=== PATIENT | male | born 1965 | race Caucasian/White ===

== ENCOUNTER 2025-09-22 15:36 | Outpatient (CLI) | payer OTHER, SELFPAY ==
--- NOTE | 2025-09-22 16:00 | CRLHL7_ITS ---
For Patients: As a result of the Century Cures Act, medical imaging exams and procedure reports are released immediately into your electronic medical record. You may view this report before your referring provider. If you have questions, please contact your health care provider. Indication: ABD HERNIA W/O OBSTRUCTION Technique: Noncontrast CT abdomen and pelvis. Valsalva performed during the exam. Please note that all CT scans at this facility use dose modulation, iterative reconstruction, and/or weight-based dosing when appropriate to reduce radiation dose to as low as reasonably achievable. Comparison: None Findings: Lung bases are clear. Mild hepatic steatosis. No calcified gallstones. Normal spleen. Circumscribed low-density left adrenal nodule measures 2.5 cm. Normal right adrenal gland. Nonobstructing renal calculi measure up to 4.1 millimeters. Normal left kidney. The ureters are normal. Normal bladder. Prostate calcifications. 7.9 cm left inguinal hernia is present which contains loops of colon. No bowel obstruction or inflammatory change. No free fluid or abscess. No fracture. Ill-defined densities in the central mesenteric fat with numerous sub cm mesenteric lymph nodes. Impression: Left inguinal hernia contains noninflamed loops of distal left colon/proximal sigmoid colon. Nonobstructing right renal calculi. Please note that all CT scans at this facility use dose modulation, iterative reconstruction, and/or weight-based dosing when appropriate to reduce radiation dose to as low as reasonably achievable. Dictated by Boubacar Roy MD @ 09/23/2025 7:34:00 PM (Electronically Signed)
== END 2025-09-22 15:37 | disposition home or self-care (01) ==
LOC: CT 15:37
PROVIDERS: PCP Family Medicine; Visit Provider Family Medicine
DX: K46.9 Unspecified abdominal hernia without obstruction or gangrene (principal); K40.90 Unilateral inguinal hernia, without obstruction or gangrene, not specified as recurrent; N20.0 Calculus of kidney
CPT/HCPCS: 74176

== ENCOUNTER 2025-10-27 15:30 | Outpatient (CLI) | payer OTHER, SELFPAY | END 2025-10-27 15:31 | disposition home or self-care (01) | LOC: NFLDREF 11-02 15:32 | PROVIDERS: PCP Family Medicine; Referring Provider Family Medicine; Visit Provider Family Medicine | DX: Z00.00 Encounter for general adult medical examination without abnormal findings (principal) | CPT/HCPCS: 80053 ==

== ENCOUNTER 2025-11-20 08:01 | Day surgery (SDC) | payer OTHER, SELFPAY ==
[2025-11-20] VITALS (13 sets, daily range): BP systolic 114–130; BP diastolic 74–90; PULSE 62–85; RESP 12–18; TEMP 36.2–36.7; O2SAT 98–100; BMI 26.5
[2025-11-20] MEDS: LACTATED RINGERS 1000 ML 1,000 ML 100 ML IV (08:15)
[2025-11-20] MEDS: SODIUM CHLORIDE 0.9 % (FLUSH) 10 ML SYRINGE IVF (08:38)
--- NOTE | 2025-11-20 09:44 | PM.GSPRC ---
Operative Note Date of procedure: 11/20/25 Pre-op diagnosis: Left inguinal hernia Post-op diagnosis: Same Type of Procedure: Laparoscopic repair reducible left inguinal hernia with mesh Indications: The patient is a 60-year-old male who presented to clinic with a 1.5 year history of a left inguinal hernia. After recent respiratory illness in which she was coughing, his symptoms became much worse with more persistent pain. After discussion of options he elected to proceed with repair. Procedure Description: After discussing the risks and benefits of the procedure, the patient signed informed consent.? The operative site was marked and the patient was brought to the operating room and placed on the operating table in supine position.? Care was taken to pad the patient's pressure points.?? The patient was then intubated by anesthesia.?? The operative site was then prepped and draped in the usual sterile fashion.? A time-out was then performed. A curvilinear incision was made below the umbilicus. Dissection was carried down to subcutaneous tissue until the anterior rectus fascia was encountered. This was incised off the midline on the left. The rectus muscle fibers were then retracted exposing the posterior fascia. A port with a dissecting balloon was then introduced into the pre-preperitoneal space. This was inflated under direct vision. The balloon was deflated, removed, and a 10 mm working port was placed. The space was insufflated and a 10 mm 30-degree scope was then advanced into the space. Two 5 mm ports were placed in the midline under direct vision. Dissection began on the left side. Abel's ligament and the pubic bone were exposed medially. Following this, dissection was carried out laterally. An indirect hernia was noted. The sac was dissected free from the cord structures using a combination of sharp and blunt dissection. A moderate-sized cord lipoma was also encountered and reduced. Once the sac was completely reduced, a piece of Bard 3DMax mesh for the appropriate side was placed into the abdomen. This was positioned with the marker pointed medially. A Tacker was used to attach the mesh medially at Abel's ligament. Once this was completed the sac was placed on top of the mesh and the preperitoneal space desufflated under direct vision to ensure the mesh laid flat. 10 mL of 0.5% Marcaine were instilled into the preperitoneal space through a port. The ports were removed. The fascia from the infraumbilical port was closed with 0 Vicryl. The skin incisions were closed with absorbable subcuticular suture. Sterile dressings were then applied. The scrotum was examined to ensure that both testicles were down. Instrument sponge and needle counts were correct at the end of the case. ? The patient was then woken and transported to the recovery area in stable condition. ? The patient tolerated the procedure well. Findings: Left indirect inguinal hernia Anesthesia: GETA Surgeon: Celi Underwood MD Estimated blood loss (mL): 5 Condition: stable Disposition: PACU
[2025-11-20] MEDS: CLINDAMYCIN 900 MG/50 ML-D5W IVPB (10:12)
[2025-11-20] MEDS: BUPIVACAINE 0.25% 30 ML INJECTION (10:45)
--- NOTE | 2025-11-20 11:12 | P.ANES_ITS ---
Anesthesia Charges Start Date/Time Anesthesia Start Date: 11/20/25 Anesthesia Start Time: 09:56 Stop Date/Time Anesthesia Stop Date: 11/20/25 Anesthesia Stop Time: 11:12 Coding CPT Codes CPT Codes: ANESTH REPAIR OF HERNIA - 48172 ([id number]) P1 - NORMAL HEALTHY PATIENT, QZ - [employer]IV[employer] THROWER SVC W/O [employer] BY
--- NOTE | 2025-11-20 11:12 | W.ANESCHARGE ---
Anesthesia Charges Start Date/Time Anesthesia Start Date: 11/20/25 Anesthesia Start Time: 09:56 Stop Date/Time Anesthesia Stop Date: 11/20/25 Anesthesia Stop Time: 11:12 Coding CPT Codes CPT Codes: ANESTH REPAIR OF HERNIA - 45814 ([id number]) P1 - NORMAL HEALTHY PATIENT, QZ - [employer] SVC W/O [employer] BY
--- NOTE | 2025-11-20 11:50 | SUR.PHASEI ---
patient met discharge criteria per anesthesia
== END 2025-11-20 13:03 | disposition home or self-care (01) ==
PROVIDERS: PCP Family Medicine; Visit Provider Surgery
PROC: (CPT 49650; principal; 2025-11-20 09:30)
DX: K40.90 Unilateral inguinal hernia, without obstruction or gangrene, not specified as recurrent (principal)
CPT/HCPCS: 49650; 00830; 00840; C1781; J0665; J0690; J0736; J1100; J1885; J2405; J2704; J2710; J3010; J7120